=== PATIENT | male | born 1990 | race Caucasian/White ===

== ENCOUNTER 2021-10-09 07:01 | Day surgery (SDC) | payer OTHER ==
[~2021-10-09 07:01] MED LIST: Bupivacaine 0.5%/EPINEPHrine 1:200,000 50 ML MDV ONE; Lidocaine 1%/Sod Bicarbonate in NS 8.4% 1 ML Syringe IDERM PRN; Sodium Chloride 0.9% 10 ML Syringe FLUSH PRN; Sodium Chloride 0.9% 10 ML Syringe FLUSH SCH
[2021-10-09] MEDS ORDERED: fentaNYL 100 MCG/2 ML SDV ONE (07:14)
[2021-10-09] MEDS ORDERED: Propofol 200 MG/20 ML SDV ONE (07:15)
[2021-10-09] MEDS ORDERED: Succinylcholine 200 MG/10 ML MDV ONE (07:16)
[2021-10-09] MEDS ORDERED: Rocuronium 50 MG/5 ML Vial ONE ×2 (07:16→10:37)
[2021-10-09] MEDS ORDERED: Lidocaine 1% 4 ML ONE (07:17)
[2021-10-09] MEDS ORDERED: Ondansetron 4 MG/2 ML SDV ONE (07:17)
[2021-10-09] MEDS: Lactated Ringers 1,000 ML IV SCH ×2 (07:25→14:15)
[2021-10-09] MEDS ORDERED: ceFAZolin 2 GM Vial ONE (08:28)
[2021-10-09] MEDS ORDERED: HYDROmorphone 0.5 MG/0.5 ML Syringe ONE ×4 (08:53→10:32)
[2021-10-09] MEDS ORDERED: Sodium Chloride 0.9% 50 ML SDV ONE ×2 (09:19→09:48)
[2021-10-09] MEDS ORDERED: Iopamidol 612 MG/ML 50 ML SDV ONE (09:19)
[2021-10-09] MEDS ORDERED: Neostigmine Methylsulfate 10 MG/10 ML MDV ONE (10:39)
[2021-10-09] MEDS ORDERED: Acetaminophen/HYDROcodone 325-5 MG Tab PO PRN (11:22)
[2021-10-09] MEDS ORDERED: Scopolamine 1.5 MG Transdermal Patch TRDERM ONE (12:00)
[2021-10-09] MEDS ORDERED: Metoclopramide 10 MG/2 ML SDV IVPUSH SCH (14:13)
[2021-10-09] MEDS ORDERED: Dexamethasone 4 MG/ML SDV IVPUSH SCH (14:13)
[2021-10-09] MEDS ORDERED: Carboprost Tromethamine 250 MCG/1 ML Amp ONE (18:40)
[2021-10-09] MEDS ORDERED: Methylergonovine 0.2 MG/1 ML Amp ONE (18:40)
== END 2021-10-09 15:00 | disposition home or self-care (01) ==
LOC: JD.SDS 07:01
PROVIDERS: ATTEND Surgery
DX: K81.1 Chronic cholecystitis (principal); K82.8 Other specified diseases of gallbladder; Z79.899 Other long term (current) drug therapy; Z98.890 Other specified postprocedural states
CPT/HCPCS: 47563; 76000; A9270; J0330; J0690; J1100; J1170; J2405; J2704; J2710; J2765; J3010; J3490; J7120; Q9967; 00790; J2210